=== PATIENT | female | born 1960 | race Asian ===

== ENCOUNTER 2018-12-23 18:17 | Emergency (ER) | payer OTHER ==
[~2018-12-23] VITALS: Ht 162.6 cm; Wt 54.4 kg
[2018-12-23] MEDS ORDERED: Bacitracin Oint UD TOPIC ONE ×2 (18:30→19:30)
[2018-12-23] MEDS ORDERED: HYDROcodone/Acetamin 5/325 tab ORAL ONE (18:30)
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
[2018-12-23 18:42] VITALS: BP 152/100
--- NOTE | 2018-12-23 21:01 | Diagnostic Imaging Report ---
EXAM: CT Right Lower Extremity Without Intravenous Contrast, Knee CLINICAL HISTORY: PAIN TECHNIQUE: Axial computed tomography images of the right knee without intravenous contrast. CTDI is 15.56 mGy and DLP is 369 mGy-cm. One or more of the following dose reduction techniques were used: automated exposure control, adjustment of the mA and/or kV according to patient size, use of iterative reconstruction technique. COMPARISON: Same day right knee x-rays FINDINGS: Bones/joints: Nondisplaced oblique fracture through the medial femoral condyle extending through the posterior horn of the lateral tibial plateau. Small lipohemarthrosis. No dislocation. Soft tissues: Unremarkable. IMPRESSION: Nondisplaced oblique fracture through the medial femoral condyle extending through the posterior horn of the lateral tibial plateau. No other fractures.
[2018-12-23] MEDS ORDERED: IBUPROFEN600 MG ORAL (21:12)
[2018-12-23] MEDS ORDERED: BACITRACIN-P28.35 GM TP (21:12)
[2018-12-23] MEDS ORDERED: NORCO 5-325 TA1 EACH ORAL (21:12)
[2018-12-23 21:38] VITALS: BP 148/94
[2018-12-23] MEDS ORDERED: WHEELCHAIR1 EACH MC (21:40)
== END 2018-12-23 21:44 | disposition home or self-care (01) ==
LOC: EDBD 18:17 → EMR 18:29
DX: S82.234A Nondisplaced oblique fracture of shaft of right tibia, initial encounter for closed fracture (principal); S92.425A Nondisplaced fracture of distal phalanx of left great toe, initial encounter for closed fracture; S82.831A Other fracture of upper and lower end of right fibula, initial encounter for closed fracture; S90.811A Abrasion, right foot, initial encounter; V09.9XXA Pedestrian injured in unspecified transport accident, initial encounter; Y92.414 Local residential or business street as the place of occurrence of the external cause
CPT/HCPCS: 29515; 99284